=== PATIENT | female | born 1980 | race Caucasian/White ===

== ENCOUNTER 2021-02-05 12:57 | Outpatient (CLI) | payer BC | END 2021-02-05 12:58 | disposition home or self-care (01) | LOC: DTY/OP 12:57 | PROVIDERS: ATTEND Surgery | DX: E66.01 Morbid (severe) obesity due to excess calories (principal) | CPT/HCPCS: 97802 ==

== ENCOUNTER 2021-03-11 09:44 | Outpatient (CLI) | payer BC ==
[2021-03-11 11:30] LABS: #Basophils 0.1 10x3/uL (0.0-0.2); #Eosinphils 0.2 10x3/uL (0.0-0.5); #Monocytes 0.6 10x3/uL (0.0-1.1); #Neutrophils 3.2 10x3/uL (1.5-8.4); %Basophils 0.7 % (0.0-2.0); %Eosinophils 2.6 % (0.0-6.0); %Lymphocytes 42.9 % (18.0-47.0); %Monocytes 8.8 % (0.0-10.0); %Neutrophils 44.4 % (40.0-75.0); Hemoglobin 12.1 g/dL (12.0-15.5); Mean Corpuscular Hemoglobin 29.3 pg (27.0-33.0); Mean Corpuscular Volume 86.2 fl (81.6-98.3); Platelet Count 354 10x3/uL (150-450); RBC Distribution Width 13.1 % (11.5-14.5); Red Blood Cell (RBC) Count 4.13 10x6/uL (3.90-5.03); White Blood Cell (WBC) Count 7.3 10x3/uL (3.5-10.5)
[2021-03-11 11:48] LABS: ALT (SGPT) 18 U/L (8-55); AST (SGOT) 24 U/L (5-34); Albumin 3.9 g/dL (3.5-5.0); Alkaline Phosphatase 42 U/L (40-110); Anion Gap 17 mmol/L (10-20); BUN (Urea Nitrogen) 17 mg/dL (7.0-18.7); Bilirubin, Total 0.3 mg/dL (0.2-1.2); Calc. Creatinine Clearance 0 mL/min (70-130); Calcium 9.5 mg/dL (7.8-10.44); Carbon Dioxide 21 mmol/L (22-29); Chloride 102 mmol/L (98-107); Globulin 3.3 g/dL (2.4-3.5); Glucose 230 mg/dL (70-105); Potassium 4.4 mmol/L (3.5-5.1); Protein, Total 7.2 g/dL (6.0-8.3); Sodium 136 mmol/L (136-145)
[2021-03-11 14:32] LABS: Hemoglobin A1c 7.8 % (4.0-6.0)
[2021-03-11 22:12] LABS: SARS-CoV-2 PCR by NAA Not Detected (NotDetected)
== END 2021-03-11 09:45 | disposition home or self-care (01) ==
LOC: LABBT 09:44
PROVIDERS: ATTEND Surgery
DX: Z01.818 Encounter for other preprocedural examination (principal); E66.01 Morbid (severe) obesity due to excess calories; Z20.822 Contact with and (suspected) exposure to COVID-19
CPT/HCPCS: 71046; 80053; 83036; 85025; 87635; 93005; 93010; U0003; U0005

== ENCOUNTER 2021-03-11 10:00 | Inpatient (IN) | payer BC ==
[2021-03-15 10:41] VITALS: BMI 43.4
[2021-03-16] MEDS ORDERED: Fentanyl 250 MCG/5 ML VIAL ONE (06:58)
[2021-03-16] MEDS ORDERED: SUGAMMADEX SODIUM 200 MG/2 ML VIAL ONE (06:59)
[2021-03-16] MEDS ORDERED: Lidocaine 1% w/Epinephrine 1:100K 20 ML VIAL ONE (07:01)
[2021-03-16] MEDS ORDERED: Bupivacaine 0.25% HCL 30 ML VIAL ONE (07:01)
[2021-03-16] MEDS ORDERED: Famotidine/PF 20 mg/2ml Vial ONE (07:12)
[2021-03-16] MEDS ORDERED: Heparin 5,000 UNITS/ML VIAL ONE (07:13)
[2021-03-16] MEDS ORDERED: Albuterol Sulfate HFA (OR ONLY) ONE (07:31)
[2021-03-16] MEDS ORDERED: Glycopyrrolate 0.2 MG/ML 5 ML SYRINGE ONE (07:35)
[2021-03-16] MEDS ORDERED: PROPOFOL 200 MG/20 ML VIAL ONE (07:35)
[2021-03-16] MEDS ORDERED: Rocuronium Bromide 10 MG/ML (10ML VIAL) ONE (07:35)
[2021-03-16] MEDS ORDERED: Lidocaine 1% PF 5 ML VIAL ONE (07:35)
[2021-03-16] MEDS ORDERED: Dexamethasone 20 MG/5 ML VIAL ONE (07:35)
[2021-03-16] MEDS ORDERED: Ondansetron PF 4 MG/2 ML Vial ONE ×2 (07:35→17:51)
[2021-03-16] MEDS ORDERED: Ondansetron HCl/PF 4 MG/2 ML Vial IVP PRN (08:49)
[2021-03-16] MEDS ORDERED: Promethazine HCl 25 MG/ML VIAL IM PRN ×2 (08:49→09:08)
[2021-03-16] MEDS ORDERED: Promethazine HCl 25 MG/ML VIAL SLOW IVP PRN (08:49)
[2021-03-16] MEDS ORDERED: Promethazine HCl 25 MG/ML VIAL ONE (09:07)
[2021-03-16] MEDS ORDERED: Ondansetron PF 4 MG/2 ML Vial IVP PRN ×2 (09:08→09:38)
[2021-03-16] MEDS ORDERED: Zolpidem Tartrate 5 MG TAB PO PRN (09:08)
[2021-03-16] MEDS ORDERED: fentaNYL Citrate/PF 2,000 MCG in Sodium Chloride 0.9% 60 ML IV PRN (09:08)
[2021-03-16] MEDS ORDERED: diphenhydrAMINE 50 MG/ML VIAL IVP PRN ×2 (09:08→09:38)
[2021-03-16] MEDS ORDERED: Naloxone HCl 0.4 mg/ml Vial IV PRN (09:08)
[2021-03-16] MEDS ORDERED: diphenhydrAMINE 50 MG/ML VIAL IM PRN (09:08)
[2021-03-16] MEDS ORDERED: diphenhydrAMINE 25 MG CAP PO PRN (09:08)
[2021-03-16] MEDS ORDERED: Communication Order-Pharmacy FS SCH (09:15)
[2021-03-16] MEDS ORDERED: Hydrocodone-Acetamin 15 ML UDCUP PO PRN (09:38)
[2021-03-16] MEDS ORDERED: Dextrose 5% in Water 1,000 ML IV PRN (09:38)
[2021-03-16] MEDS ORDERED: Non-Formulary Item 1 EACH (Albuterol Sulfate [Albuterol Sulfate Hfa] 8.5 GM Hfa.Aer.Ad) IH PRN (09:38)
[2021-03-16] MEDS ORDERED: Dextrose 50% Abboject 50 ML SYRINGE SLOW IVP PRN (09:38)
[2021-03-16] MEDS ORDERED: HumaLOG 300 UNITS/3 ML VIAL SC PRN (09:38)
[2021-03-16] MEDS ORDERED: hydrALAZINE 20 MG/ML VIAL SLOW IVP PRN (09:38)
[2021-03-16] MEDS: Carvedilol 3.125 MG TAB PO SCH (19:51)
[2021-03-16] MEDS: Sodium Chloride 0.9% 1,000 ML IV SCH (19:52)
[2021-03-16] MEDS ORDERED: DESOGESTREL ETHINYL ESTRADIOL PO SCH (21:00)
[2021-03-16] MEDS ORDERED: Losartan 25 MG TAB PO SCH (21:00)
[2021-03-16] MEDS ORDERED: Enoxaparin Sodium 40 MG/0.4 ML SYRINGE SC SCH (21:00)
[2021-03-16] MEDS: Bupropion 150 MG SR TAB PO SCH (21:15)
[2021-03-17] MEDS: Sodium Chloride 0.9% 1,000 ML IV SCH ×2 (03:58→10:59)
[2021-03-17 06:00] LABS: #Basophils 0.1 thou/uL (0.0-0.2); #Lymphocytes 2.4 thou/uL (1.20-3.40); #Neutrophils 6.2 thou/uL (1.40-6.50); %Basophils 0.7 % (0.0-1.0); %Eosinophils 0.3 % (0.0-10.0); %Lymphocytes 24.8 % (21.0-51.0); %Monocytes 10.6 % (0.0-10.0); %Neutrophils 63.6 % (42.0-75.0); Hemoglobin 11.4 g/dL (12.0-16.0); Mean Corpuscular HGB CONC 35.4 g/dL (32.0-36.0); Mean Corpuscular Hemoglobin 30.5 pg (27.0-31.0); Mean Platelet Volume 7.7 fL (7.4-10.4); Platelet Count 299 thou/uL (130-400); RBC Distribution Width 12.6 % (11.5-14.5); Red Blood Cell (RBC) Count 3.73 mill/uL (4.20-5.40); White Blood Cell (WBC) Count 9.7 thou/uL (4.8-10.8)
[2021-03-17 06:20] LABS: Anion Gap 17 mmol/L (10-20); BUN (Urea Nitrogen) 8 mg/dL (7.0-18.7); Calc. Creatinine Clearance 139 mL/min (70-130); Calcium 8.6 mg/dL (7.8-10.44); Carbon Dioxide 18 mmol/L (22-29); Chloride 103 mmol/L (98-107); Glucose 215 mg/dL (70-105); Potassium 3.6 mmol/L (3.5-5.1); Sodium 134 mmol/L (136-145)
[2021-03-17] MEDS: Promethazine HCl 25 MG/ML VIAL IM PRN ×2 (06:32→08:32)
[2021-03-17] MEDS: Carvedilol 3.125 MG TAB PO SCH (08:23)
[2021-03-17] MEDS: Bupropion 150 MG SR TAB PO SCH (08:23)
[2021-03-17] MEDS ORDERED: Pantoprazole 40 MG VIAL IVP SCH (09:00)
[2021-03-17] MEDS: Hydrocodone-Acetamin 15 ML UDCUP PO PRN ×2 (09:16→14:26)
[2021-03-17 15:31] VITALS: BP 119/77; TEMP 97.8
== END 2021-03-17 16:40 | disposition home or self-care (01) | DRG 621 ==
LOC: EDSTATUS 10:00 → SURG A 03-16 06:07
PROVIDERS: ADMIT Surgery; ATTEND Surgery
PROC: 0DB64Z3 Excision of Stomach, Percutaneous Endoscopic Approach, Vertical (ICD-10-PCS; principal; 2021-03-16)
DX: E66.01 Morbid (severe) obesity due to excess calories (principal); Z68.41 Body mass index [BMI] 40.0-44.9, adult; Z20.822 Contact with and (suspected) exposure to COVID-19; E11.9 Type 2 diabetes mellitus without complications; E78.5 Hyperlipidemia, unspecified; I10 Essential (primary) hypertension; J30.2 Other seasonal allergic rhinitis; F32.9 Major depressive disorder, single episode, unspecified; Z87.891 Personal history of nicotine dependence; Z79.84 Long term (current) use of oral hypoglycemic drugs; Z79.899 Other long term (current) drug therapy
CPT/HCPCS: 36415; 36416; 80048; 85025; 88307; C9113; J0690; J1100; J1644; J1650; J1815; J2405; J2550; J2704; J3010; S0020; S0028

== ENCOUNTER 2021-04-22 12:22 | Day surgery (SDC) | payer BC ==
[2021-04-22] MEDS ORDERED: Sodium Chloride 0.9% 20 ML ONE (12:25)
[2021-04-22] MEDS ORDERED: Ondansetron PF 4 MG/2 ML Vial IVP PRN (12:36)
[2021-04-22 12:43] VITALS: BP 124/65
[2021-04-22] MEDS ORDERED: Sodium Chloride 0.9% 1,000 ML IV SCH (12:45)
[2021-04-22] MEDS ORDERED: Multivitamins, Adult 10 ML, Thiamine HCl 100 MG in Sodium Chloride 0.9% 1,000 ML IV SCH (14:00)
== END 2021-04-22 15:53 | disposition home or self-care (01) ==
LOC: ONC/OP 12:22
PROVIDERS: ATTEND Surgery
DX: E86.0 Dehydration (principal); Z91.048 Other nonmedicinal substance allergy status
CPT/HCPCS: 96361; 96365; 96366; J3411; J7050